=== PATIENT | female | born 1995 | race American Indian/Alaskan Native ===

== ENCOUNTER 2022-03-06 14:29 | Emergency (ER) | payer OTHER ==
--- NOTE | 2022-03-06 16:02 | XRay Report ---
Right wrist 4 views INDICATION: Right wrist pain following injury IMPRESSION: There is a nondisplaced fracture involving the ulnar styloid process. There is some edema along the dorsal aspect of the wrist. Signer Name: Fabián Tabares MD Signed: 03/06/2022 3:58 PM Workstation Name: [id number]
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
[2022-03-06 23:52] VITALS: BP 137/81
== END 2022-03-06 23:52 | disposition home or self-care (01) ==
LOC: ED 14:29
DX: S52.611A Displaced fracture of right ulna styloid process, initial encounter for closed fracture (principal); V89.2XXA Person injured in unspecified motor-vehicle accident, traffic, initial encounter; Y93.89 Activity, other specified; Y92.89 Other specified places as the place of occurrence of the external cause; Y99.8 Other external cause status
CPT/HCPCS: 99283